=== PATIENT | male | born 1950 | race Caucasian/White ===

== ENCOUNTER 2017-11-02 21:05 | Inpatient (IN) ==
[2017-11-02] MEDS ORDERED: methylPREDNISolone SOD SUC 125 MG/2 ML VIAL IV STA (22:27)
[2017-11-02] MEDS ORDERED: ASPIRIN 325 MG TABLET PO STA (22:27)
[2017-11-02] MEDS ORDERED: cefTRIAXone 1,000 MG in SODIUM CHLORIDE 0.9% 100 ML IV STA (22:27)
[2017-11-02] MEDS ORDERED: MORPHINE 2 MG/1 ML SYRINGE IV STA (22:27)
[2017-11-02] MEDS ORDERED: ONDANSETRON 4 MG/2 ML VIAL IV STA (22:27)
[2017-11-02] MEDS ORDERED: FUROSEMIDE 100 MG/10 ML VIAL IV STA (22:27)
[2017-11-02] MEDS ORDERED: ALBUTEROL 2.5 MG/3 ML NEB RESP TX SCH (22:30)
[2017-11-02 22:39] LABS: Basophils % 0.2 % (0.0-0.8); Hematocrit 43.2 VOL% (42.0-52.0); Immature Granulocytes % 0.9 %; Immature Granulocytes Absolute 0.09 #; Lymphocytes # 0.8 10*3/uL (1.4-4.0); Lymphocytes % 8.1 % (21.2-54.2); Mean Corpuscular HGB Conc 34.7 GM/DL (32-36); Mean Corpuscular Hemoglobin 30 PG (27-34); Mean Corpuscular Volume 85.7 FL (87-102); Mean Platelet Volume 9.3 FL (9.6-12.0); Monocytes # 0.3 10*3/uL (0.11-0.8); Monocytes % 2.9 % (1.7-12.7); Neutrophils # 8.9 10*3/uL (1.4-7.4); Neutrophils % 87.9 % (38.7-73.9); Platelet Count 360 T/CUMM (130-400); Red Blood Count 5.04 MC/CUMM (3.8-5.5); Red Cell Distribution Width 14.1 % (9.3-17.3); White Blood Count 10.1 T/CUMM (4-12)
[2017-11-02] MEDS ORDERED: MORPHINE 2 MG/1 ML SYRINGE ONE (22:39)
[2017-11-02] MEDS ORDERED: methylPREDNISolone SOD SUC 125 MG/2 ML VIAL ONE (22:39)
[2017-11-02] MEDS ORDERED: FUROSEMIDE 20 MG/2 ML VIAL ONE (22:39)
[2017-11-02] MEDS ORDERED: SODIUM CHLORIDE 0.9% 100 ML IV ONE (22:39)
[2017-11-02] MEDS ORDERED: cefTRIAXone 1,000 MG VIAL ONE (22:39)
[2017-11-02 22:48] LABS: INR 0.9; PT Patient Result 9.6 SECS
[2017-11-02] MEDS ORDERED: ONDANSETRON 4 MG/2 ML VIAL ONE (22:57)
[2017-11-02 23:02] LABS: ABG Base Excess -0.2 MMOL/L (-2.5-2.5); ABG HCO3 24.2 MMOL/L (20-26); ABG Oxygen Saturation 94.2 % (95-100); ABG PCO2 29.1 MM HG (35-48); ABG PH 7.485 (7.35-7.45); ABG PO2 73.5 MM HG (80-95); ABG TCO2 18.4 MMOL/L (23-27); Allen Test Positive
[2017-11-02 23:11] LABS: Alanine Aminotransferase 30 U/L (16-61); Alkaline Phosphatase 62 U/L (45-117); Aspartate Amino Transferase 16 U/L (0-37); Blood Urea Nitrogen 30 MG/DL (7-18); Calcium 9.3 MG/DL (8.5-10.1); Glucose 469 MG/DL (74-106); Osmolality,Calculated 286.8 MOS/KG (273-304); Potassium 4.5 MMOL/L (3.5-5.1); Sodium 130 MMOL/L (136-145); Total Protein 8.4 G/DL (6.4-8.3); Troponin I Only < 0.015 NG/ML (0.00-0.045)
[2017-11-02] MEDS ORDERED: INSULIN REGULAR 100 UNIT/ML SUBCUT STA (23:37)
[2017-11-03 00:09] LABS: Lactic Acid 2.8 MMOL/L (0.4-2.0)
[2017-11-03] MEDS ORDERED: INSULIN REGULAR 100 UNIT/ML ONE ×3 (00:15→02:54)
[2017-11-03 00:31] LABS: INR 0.9; PT Patient Result 9.5 SECS; Partial Thromboplastin Time 26.1 SECS (0-40)
[2017-11-03 00:37] LABS: Apearance,Urine CLEAR (Clear); Bilirubin,Urine Negative (Negative); Blood, Urine Negative (Negative); Glucose,Urine (UA) >=500 mg/dL (Negative); Ketones,Urine 5 mg/dL (Negative); Nitrite,Urine Negative (Negative); Protein,Urine Negative; Urine Color Straw (Yellow); Urine Specific Gravity 1.018 (1.001-1.035); Urine Urobilinogen < 2.0 EU/DL (0.2-1.0); WBC,Urine <1 /HPF (0-6)
[2017-11-03 00:44] LABS: Barbiturates Screen,Urine Negative (Negative); Benzodiazepines Screen,Urine Negative (Negative); Cannabinoid Screen,Urine Negative (Negative); Opiate Screen,Urine Positive (Negative); Phencyclidine Screen,Urine Negative (Negative)
[2017-11-03] MEDS ORDERED: PIPERACILLIN/TAZOBACTAM 3,375 MG in SODIUM CHLORIDE 0.9% 100 ML IV SCH ×2 (01:00→10:00)
[2017-11-03] MEDS ORDERED: PIPERACILLIN/TAZOBACTAM 3,375 MG VIAL IV ONE (01:04)
[2017-11-03] MEDS ORDERED: SODIUM CHLORIDE 0.9% 100 ML IV ONE (01:05)
[2017-11-03] MEDS ORDERED: INSULIN REGULAR 100 UNIT/ML IV STA ×2 (01:10→02:50)
[2017-11-03] MEDS ORDERED: SODIUM CHLORIDE 0.9% 1,000 ML IV STA (02:50)
[2017-11-03] MEDS ORDERED: guaiFENesin/DM ER 600-30 MG TABLET PO PRN (02:57)
[2017-11-03] MEDS ORDERED: ACETAMINOPHEN 325 MG TABLET PO PRN (02:57)
[2017-11-03] MEDS ORDERED: DEXTROSE 50% 25 GM/50 ML VIAL IV PRN (02:57)
[2017-11-03] MEDS ORDERED: GLUCAGON 1 MG VIAL IM PRN (02:57)
[2017-11-03] MEDS ORDERED: ONDANSETRON 4 MG/2 ML VIAL IV PRN (02:57)
[2017-11-03] MEDS ORDERED: SODIUM CHLORIDE 0.9% 1,000 ML IV ONE (03:08)
[2017-11-03] MEDS ORDERED: SODIUM CHLORIDE 0.9% 2,000 ML IV STA (03:09)
[2017-11-03 03:17] LABS: Basophils % 0.1 % (0.0-0.8); Hemoglobin 13.6 GM/DL (14.0-18.0); Immature Granulocytes % 0.8 %; Immature Granulocytes Absolute 0.08 #; Lymphocytes # 0.4 10*3/uL (1.4-4.0); Lymphocytes % 3.8 % (21.2-54.2); Mean Corpuscular Hemoglobin 30 PG (27-34); Mean Corpuscular Volume 87.5 FL (87-102); Mean Platelet Volume 8.9 FL (9.6-12.0); Monocytes % 0.3 % (1.7-12.7); Neutrophils # 9.2 10*3/uL (1.4-7.4); Platelet Count 292 T/CUMM (130-400); Red Blood Count 4.57 MC/CUMM (3.8-5.5); Red Cell Distribution Width 13.9 % (9.3-17.3); White Blood Count 9.7 T/CUMM (4-12)
[2017-11-03 03:37] LABS: Band Neutrophils 3 % (0-10); Lymphocytes 6 % (20-55); Platelet Estimate Normal; Segmented Neutrophils 91 % (50-85); Total Cells Counted 100
[2017-11-03 03:43] LABS: Albumin 3.4 G/DL (3.4-5.0); Bilirubin,Total 0.5 MG/DL (0.2-1.0); Calcium 8.6 MG/DL (8.5-10.1); Osmolality,Calculated 290.4 MOS/KG (273-304); Potassium 3.5 MMOL/L (3.5-5.1); Total Protein 7.1 G/DL (6.4-8.3)
[2017-11-03] MEDS ORDERED: AZITHROMYCIN INJ 500 MG in SODIUM CHLORIDE 0.9% 250 ML IV ONE (05:30)
[2017-11-03] MEDS: LEVOTHYROXINE 100 MCG TABLET PO SCH (06:03)
[2017-11-03] MEDS: INSULIN GLARGINE 100 UNIT/ML SUBCUT SCH (09:19)
[2017-11-03] MEDS: INSULIN LISPRO 100 UNIT/ML SUBCUT SCH ×4 (09:19→21:50)
[2017-11-03] MEDS: LISINOPRIL 5 MG TABLET PO SCH (09:19)
[2017-11-03] MEDS: DILTIAZEM CD 120 MG CAPSULE PO SCH (09:19)
[2017-11-03] MEDS: PANTOPRAZOLE 40 MG TABLET PO SCH (09:19)
[2017-11-03] MEDS: GEMFIBROZIL 600 MG TABLET PO SCH ×2 (09:19→16:51)
[2017-11-03] MEDS: FEXOFENADINE 180 MG TABLET PO SCH (09:19)
[2017-11-03] MEDS: ENOXAPARIN 40 MG/0.4 ML SYRINGE SUBCUT SCH (09:19)
[2017-11-03] MEDS: LEVOFLOXACIN INJ 750 MG in PREMIX 1 EACH IV SCH (10:59)
[2017-11-03 11:56] LABS: Apearance,Urine CLEAR (Clear); Bilirubin,Urine Negative (Negative); Blood, Urine Negative (Negative); Glucose,Urine (UA) >=500 mg/dL (Negative); Ketones,Urine Negative (Negative); Nitrite,Urine Negative (Negative); Protein,Urine Negative; RBC,Urine <1 /HPF (0-4); Urine Color Straw (Yellow); Urine Specific Gravity 1.022 (1.001-1.035); Urine Urobilinogen < 2.0 EU/DL (0.2-1.0)
[2017-11-03] MEDS: CEFEPIME 1,000 MG in SYRINGE 1 EACH IV SCH (12:59)
[2017-11-03] MEDS: TAMSULOSIN 0.4 MG CAPSULE PO SCH (17:10)
[2017-11-03] MEDS ORDERED: cefTRIAXone 1,000 MG in SYRINGE 1 EACH IV SCH (20:00)
[2017-11-04] MEDS: CEFEPIME 1,000 MG in SYRINGE 1 EACH IV SCH ×2 (00:08→11:51)
[2017-11-04 05:04] LABS: Basophils % 0.4 % (0.0-0.8); Eosinophils # 0.1 10*3/uL (0.0-0.87); Eosinophils % 0.7 % (0.00-10.9); Hematocrit 41.1 VOL% (42.0-52.0); Hemoglobin 13.7 GM/DL (14.0-18.0); Immature Granulocytes % 1.7 %; Immature Granulocytes Absolute 0.14 #; Lymphocytes # 1.8 10*3/uL (1.4-4.0); Lymphocytes % 22.3 % (21.2-54.2); Mean Corpuscular HGB Conc 33.3 GM/DL (32-36); Mean Corpuscular Hemoglobin 29 PG (27-34); Mean Corpuscular Volume 87.6 FL (87-102); Mean Platelet Volume 9.2 FL (9.6-12.0); Monocytes # 0.5 10*3/uL (0.11-0.8); Monocytes % 6.4 % (1.7-12.7); Neutrophils # 5.6 10*3/uL (1.4-7.4); Neutrophils % 68.5 % (38.7-73.9); Platelet Count 306 T/CUMM (130-400); Red Blood Count 4.69 MC/CUMM (3.8-5.5); Red Cell Distribution Width 14.2 % (9.3-17.3); White Blood Count 8.1 T/CUMM (4-12)
[2017-11-04 05:28] LABS: Calcium 8.7 MG/DL (8.5-10.1); Osmolality,Calculated 286.8 MOS/KG (273-304)
[2017-11-04 05:44] LABS: Risk Ratio 8.24; VLDL CHOLESTEROL 91.8 MG/DL
[2017-11-04] MEDS ORDERED: diphenhydrAMINE CAP 25 MG CAPSULE PO ONE (06:30)
[2017-11-04] MEDS ORDERED: DIAZEPAM 5 MG TABLET PO ONE (06:30)
[2017-11-04] MEDS ORDERED: MAGNESIUM SULF RIDER 2 GM in PREMIX 1 EACH IV PRN (06:30)
[2017-11-04] MEDS ORDERED: POTASSIUM CHLORIDE RIDER 10 MEQ in PREMIX 1 EACH IV PRN (06:30)
[2017-11-04] MEDS: INSULIN LISPRO 100 UNIT/ML SUBCUT SCH ×4 (07:36→21:17)
[2017-11-04] MEDS: GEMFIBROZIL 600 MG TABLET PO SCH (07:36)
[2017-11-04] MEDS: LEVOTHYROXINE 100 MCG TABLET PO SCH (07:37)
[2017-11-04] MEDS ORDERED: HEPARIN/NACL 0.9% 2 UNITS/ML 2,000 ML IV ONE (08:19)
[2017-11-04] MEDS ORDERED: NITROGLYCERIN DRIP 50 MG/250 ML BOTTLE IV ONE (08:42)
[2017-11-04] MEDS ORDERED: MIDAZOLAM 2 MG/2 ML VIAL ONE (08:42)
[2017-11-04] MEDS ORDERED: HYDROmorphone 2 MG/1 ML VIAL ONE (08:42)
[2017-11-04] MEDS ORDERED: LIDOCAINE 1% 20 ML VIAL ONE (08:42)
[2017-11-04] MEDS ORDERED: VERAPAMIL 5 MG/2 ML VIAL ONE (08:43)
[2017-11-04] MEDS ORDERED: ENOXAPARIN 30 MG/0.3 ML SYRINGE ONE (08:57)
[2017-11-04] MEDS ORDERED: BIVALIRUDIN 250 MG VIAL IV ONE (09:16)
[2017-11-04] MEDS ORDERED: TICAGRELOR 90 MG TABLET ONE (09:31)
[2017-11-04] MEDS ORDERED: ASPIRIN 325 MG TABLET ONE (09:37)
[2017-11-04] MEDS ORDERED: SODIUM CHLORIDE 0.9% 1,000 ML IV SCH (10:00)
[2017-11-04] MEDS: PANTOPRAZOLE 40 MG TABLET PO SCH (10:18)
[2017-11-04] MEDS: INSULIN GLARGINE 100 UNIT/ML SUBCUT SCH (10:18)
[2017-11-04] MEDS: ENOXAPARIN 40 MG/0.4 ML SYRINGE SUBCUT SCH (10:18)
[2017-11-04] MEDS: DILTIAZEM CD 120 MG CAPSULE PO SCH (10:18)
[2017-11-04] MEDS: LISINOPRIL 5 MG TABLET PO SCH (10:18)
[2017-11-04] MEDS: FEXOFENADINE 180 MG TABLET PO SCH (10:19)
[2017-11-04] MEDS: LEVOFLOXACIN INJ 750 MG in PREMIX 1 EACH IV SCH (10:52)
[2017-11-04] MEDS: TAMSULOSIN 0.4 MG CAPSULE PO SCH (17:41)
[2017-11-04] MEDS ORDERED: ROSUVASTATIN 20 MG TABLET PO SCH (21:00)
[2017-11-04] MEDS: TICAGRELOR 90 MG TABLET PO SCH (21:17)
[2017-11-05] MEDS: CEFEPIME 1,000 MG in SYRINGE 1 EACH IV SCH ×2 (00:36→12:14)
[2017-11-05 04:41] LABS: Basophils % 0.6 % (0.0-0.8); Eosinophils # 0.1 10*3/uL (0.0-0.87); Eosinophils % 1.1 % (0.00-10.9); Hematocrit 39.8 VOL% (42.0-52.0); Hemoglobin 13.7 GM/DL (14.0-18.0); Immature Granulocytes Absolute 0.13 #; Lymphocytes # 1.3 10*3/uL (1.4-4.0); Mean Corpuscular HGB Conc 34.4 GM/DL (32-36); Mean Corpuscular Hemoglobin 29 PG (27-34); Mean Corpuscular Volume 85.4 FL (87-102); Mean Platelet Volume 8.8 FL (9.6-12.0); Monocytes # 0.5 10*3/uL (0.11-0.8); Monocytes % 7.2 % (1.7-12.7); Neutrophils # 4.4 10*3/uL (1.4-7.4); Neutrophils % 68.1 % (38.7-73.9); Platelet Count 269 T/CUMM (130-400); Red Blood Count 4.66 MC/CUMM (3.8-5.5); White Blood Count 6.4 T/CUMM (4-12)
[2017-11-05 05:20] LABS: Blood Urea Nitrogen 21 MG/DL (7-18); Calcium 8.3 MG/DL (8.5-10.1); Glucose 317 MG/DL (74-106); Osmolality,Calculated 284.1 MOS/KG (273-304); Potassium 3.7 MMOL/L (3.5-5.1); Sodium 135 MMOL/L (136-145); Troponin I Only 0.018 NG/ML (0.00-0.045)
[2017-11-05 05:35] LABS: Calcium 8.4 MG/DL (8.5-10.1); Osmolality,Calculated 283.1 MOS/KG (273-304); Potassium 3.7 MMOL/L (3.5-5.1)
[2017-11-05] MEDS: LEVOTHYROXINE 100 MCG TABLET PO SCH (05:41)
[2017-11-05 08:36] VITALS: BP 147/77
[2017-11-05] MEDS ORDERED: CARVEDILOL 3.125 MG TABLET PO SCH (09:00)
[2017-11-05] MEDS ORDERED: ASPIRIN EC 81 MG TABLET PO SCH (09:00)
[2017-11-05] MEDS: INSULIN LISPRO 100 UNIT/ML SUBCUT SCH ×2 (09:05→12:14)
[2017-11-05] MEDS: TICAGRELOR 90 MG TABLET PO SCH (09:06)
[2017-11-05] MEDS: DILTIAZEM CD 120 MG CAPSULE PO SCH (09:06)
[2017-11-05] MEDS: FEXOFENADINE 180 MG TABLET PO SCH (09:06)
[2017-11-05] MEDS: LISINOPRIL 5 MG TABLET PO SCH (09:06)
[2017-11-05] MEDS: PANTOPRAZOLE 40 MG TABLET PO SCH (09:06)
[2017-11-05] MEDS: INSULIN GLARGINE 100 UNIT/ML SUBCUT SCH (09:06)
[2017-11-05] MEDS: ENOXAPARIN 40 MG/0.4 ML SYRINGE SUBCUT SCH (09:10)
[2017-11-05] MEDS: LEVOFLOXACIN INJ 750 MG in PREMIX 1 EACH IV SCH (10:23)
== END 2017-11-05 12:16 | disposition home or self-care (01) | DRG 853 ==
LOC: N.ED 21:05 → N.EDINP 11-03 03:00 → SUATTDRO 11-03 03:00 → N.TELES 11-03 03:51
PROVIDERS: ADMIT Internal Medicine Infectious Disease; ATTEND Internal Medicine
PROC: CLCCHCL (ICD-10-PCS; 2017-11-04 10:15)

== ENCOUNTER 2018-09-10 12:06 | Observation (INO) ==
[2018-09-10 14:11] LABS: INR 0.9; Partial Thromboplastin Time 26.5 SECS (0-40)
[2018-09-10 14:12] LABS: Albumin 3.8 G/DL (3.4-5.0); Bilirubin,Total 0.5 MG/DL (0.2-1.0); Calcium 9.1 MG/DL (8.5-10.1); Osmolality,Calculated 277.7 MOS/KG (273-304); Potassium 4.3 MMOL/L (3.5-5.1); Total Protein 7.9 G/DL (6.4-8.3)
[2018-09-10 14:33] LABS: Basophils # 0.1 10*3/uL (0.0-0.2); Basophils % 0.9 % (0.0-0.8); Eosinophils # 0.1 10*3/uL (0.0-0.87); Eosinophils % 1.5 % (0.00-10.9); Hematocrit 45.2 VOL% (42.0-52.0); Hemoglobin 13.6 GM/DL (14.0-18.0); Immature Granulocytes % 0.6 %; Immature Granulocytes Absolute 0.05 #; Lymphocytes # 1.6 10*3/uL (1.4-4.0); Lymphocytes % 20.2 % (21.2-54.2); Mean Corpuscular HGB Conc 30.1 GM/DL (32-36); Mean Corpuscular Hemoglobin 24 PG (27-34); Mean Corpuscular Volume 78.1 FL (87-102); Mean Platelet Volume 8.6 FL (9.6-12.0); Monocytes # 0.6 10*3/uL (0.11-0.8); Monocytes % 7.3 % (1.7-12.7); Neutrophils # 5.7 10*3/uL (1.4-7.4); Neutrophils % 69.5 % (38.7-73.9); Platelet Count 352 T/CUMM (130-400); Red Blood Count 5.79 MC/CUMM (3.8-5.5); Red Cell Distribution Width 23.6 % (9.3-17.3); White Blood Count 8.1 T/CUMM (4-12)
[2018-09-10] MEDS ORDERED: SODIUM CHLORIDE 0.9% 1,000 ML IV ONE (15:29)
[2018-09-10 16:00] LABS: Platelet Estimate Adequate
[2018-09-10] MEDS ORDERED: LORazepam 2 MG/1 ML VIAL IV STA (16:06)
[2018-09-10] MEDS ORDERED: GLUCAGON 1 MG VIAL IM PRN (16:20)
[2018-09-10] MEDS ORDERED: MORPHINE 4 MG/1 ML VIAL IV PRN (16:20)
[2018-09-10] MEDS ORDERED: DEXTROSE 50% 25 GM/50 ML VIAL IV PRN (16:20)
[2018-09-10] MEDS ORDERED: ACETAMINOPHEN 325 MG TABLET PO PRN (16:20)
[2018-09-10] MEDS ORDERED: ONDANSETRON 4 MG/2 ML VIAL IV PRN (16:20)
[2018-09-10] MEDS ORDERED: traMADol 50 MG TABLET PO PRN (16:23)
[2018-09-10] MEDS ORDERED: ALBUTEROL 2.5 MG/3 ML NEB RESP TX PRN (16:23)
[2018-09-10 16:52] LABS: Thyroid Stimulating Hormone 2.54 uIU/ml (0.358-3.74)
[2018-09-10] MEDS: SODIUM CHLORIDE 0.9% 1,000 ML IV SCH (17:10)
[2018-09-10] MEDS ORDERED: LORazepam 2 MG/1 ML VIAL IV PRN (18:19)
[2018-09-10] MEDS: INSULIN REGULAR 100 UNIT/ML SUBCUT SCH ×2 (19:06→21:31)
[2018-09-10] MEDS: methylPREDNISolone SOD SUC 40 MG/1 ML VIAL IV SCH (19:16)
[2018-09-10] MEDS: PANTOPRAZOLE 40 MG TABLET PO SCH (19:16)
[2018-09-10] MEDS: ALBUTEROL/IPRATROPIUM 3 ML NEB RESP TX SCH (20:27)
[2018-09-10] MEDS: TICAGRELOR 90 MG TABLET PO SCH (21:45)
[2018-09-10] MEDS: INSULIN GLARGINE 100 UNIT/ML SUBCUT SCH (21:46)
[2018-09-11] MEDS: ALBUTEROL/IPRATROPIUM 3 ML NEB RESP TX SCH ×7 (00:38→23:17)
[2018-09-11] MEDS: methylPREDNISolone SOD SUC 40 MG/1 ML VIAL IV SCH ×4 (00:50→18:40)
[2018-09-11] MEDS: SODIUM CHLORIDE 0.9% 1,000 ML IV SCH ×3 (00:56→17:32)
[2018-09-11 01:16] LABS: Apearance,Urine CLEAR (Clear); Bilirubin,Urine Negative (Negative); Blood, Urine Negative (Negative); Glucose,Urine (UA) >=500 mg/dL (Negative); Ketones,Urine 5 mg/dL (Negative); Nitrite,Urine Negative (Negative); Protein,Urine Negative; Urine Color Straw (Yellow); Urine Specific Gravity 1.021 (1.001-1.035); Urine Urobilinogen < 2.0 EU/DL (0.2-1.0)
[2018-09-11 04:31] LABS: ABG HCO3 21.9 MMOL/L (20-26); ABG Oxygen Saturation 99.3 % (95-100); ABG PCO2 37.6 MM HG (35-48); ABG PH 7.372 (7.35-7.45); ABG TCO2 19.3 MMOL/L (23-27); Allen Test Positive
[2018-09-11 05:41] LABS: Calcium 8.2 MG/DL (8.5-10.1); Osmolality,Calculated 283.7 MOS/KG (273-304); Potassium 3.8 MMOL/L (3.5-5.1)
[2018-09-11] MEDS: LEVOTHYROXINE 100 MCG TABLET PO SCH (05:59)
[2018-09-11 06:24] LABS: Hematocrit 39.8 VOL% (42.0-52.0); Immature Granulocytes % 0.4 %; Immature Granulocytes Absolute 0.03 #; Lymphocytes # 0.4 10*3/uL (1.4-4.0); Lymphocytes % 5.1 % (21.2-54.2); Mean Corpuscular HGB Conc 29.9 GM/DL (32-36); Mean Corpuscular Hemoglobin 24 PG (27-34); Mean Corpuscular Volume 79.3 FL (87-102); Mean Platelet Volume 8.6 FL (9.6-12.0); Monocytes % 0.4 % (1.7-12.7); Neutrophils # 7.2 10*3/uL (1.4-7.4); Neutrophils % 94.1 % (38.7-73.9); Platelet Count 299 T/CUMM (130-400); Red Blood Count 5.02 MC/CUMM (3.8-5.5); Red Cell Distribution Width 23.2 % (9.3-17.3); White Blood Count 7.6 T/CUMM (4-12)
[2018-09-11 06:26] LABS: Hemoglobin 11.9 GM/DL (14.0-18.0)
[2018-09-11 06:36] LABS: Anisocytosis 1+; Band Neutrophils 5 % (0-10); Lymphocytes 4 % (20-55); Microcytosis 1+; Platelet Estimate Normal; Segmented Neutrophils 90 % (50-85); Total Cells Counted 100
[2018-09-11] MEDS ORDERED: NON-FORMULARY MEDICATION (Fluticasone/Vilanterol [Breo Ellipta 100-25 Mcg Inh] 1 PUFF) INH SCH (09:00)
[2018-09-11] MEDS: TICAGRELOR 90 MG TABLET PO SCH ×2 (09:24→21:18)
[2018-09-11] MEDS: DILTIAZEM CD 120 MG CAPSULE PO SCH (09:24)
[2018-09-11] MEDS: ASPIRIN EC 81 MG TABLET PO SCH (09:24)
[2018-09-11] MEDS: TAMSULOSIN 0.4 MG CAPSULE PO SCH (09:24)
[2018-09-11] MEDS: PANTOPRAZOLE 40 MG TABLET PO SCH (09:25)
[2018-09-11] MEDS: INSULIN REGULAR 100 UNIT/ML SUBCUT SCH ×4 (09:25→23:00)
[2018-09-11] MEDS: CYCLOBENZAPRINE 10 MG TABLET PO SCH ×2 (15:01→21:18)
[2018-09-11] MEDS: INSULIN GLARGINE 100 UNIT/ML SUBCUT SCH (23:01)
[2018-09-12] MEDS: methylPREDNISolone SOD SUC 40 MG/1 ML VIAL IV SCH ×3 (01:18→12:38)
[2018-09-12] MEDS: SODIUM CHLORIDE 0.9% 1,000 ML IV SCH ×2 (01:24→09:32)
[2018-09-12] MEDS: ALBUTEROL/IPRATROPIUM 3 ML NEB RESP TX SCH ×3 (03:24→10:56)
[2018-09-12 04:52] LABS: ABG Base Excess -1.4 MMOL/L (-2.5-2.5); ABG HCO3 23.2 MMOL/L (20-26); ABG Oxygen Saturation 98.4 % (95-100); ABG PCO2 38.5 MM HG (35-48); ABG PH 7.389 (7.35-7.45); ABG TCO2 20.6 MMOL/L (23-27); Allen Test Positive
[2018-09-12] MEDS: LEVOTHYROXINE 100 MCG TABLET PO SCH (06:23)
[2018-09-12] MEDS ORDERED: FEXOFENADINE 180 MG TABLET PO SCH (09:00)
[2018-09-12] MEDS ORDERED: Empagliflozin [Jardiance] 25 MG PO SCH (09:00)
[2018-09-12] MEDS: ASPIRIN EC 81 MG TABLET PO SCH (09:21)
[2018-09-12] MEDS: PANTOPRAZOLE 40 MG TABLET PO SCH (09:21)
[2018-09-12] MEDS: TAMSULOSIN 0.4 MG CAPSULE PO SCH (09:21)
[2018-09-12] MEDS: CYCLOBENZAPRINE 10 MG TABLET PO SCH ×2 (09:21→14:02)
[2018-09-12] MEDS: DILTIAZEM CD 120 MG CAPSULE PO SCH (09:21)
[2018-09-12] MEDS: TICAGRELOR 90 MG TABLET PO SCH (09:21)
[2018-09-12] MEDS: INSULIN REGULAR 100 UNIT/ML SUBCUT SCH ×2 (09:29→12:37)
[2018-09-12 15:47] VITALS: BP 114/62
== END 2018-09-12 15:50 | disposition home or self-care (01) ==
LOC: N.ED 12:06 → N.EDINP 15:27 → SUATTDRO 15:27 → INTOOBSV 15:27 → N.CC 17:45 → N.5E 09-11 11:09
PROVIDERS: ADMIT Internal Medicine; ATTEND Internal Medicine Cardiovascular Disease

== ENCOUNTER 2019-06-29 15:27 | Observation (INO) ==
[2019-06-29] MEDS ORDERED: ALBUTEROL/IPRATROPIUM 3 ML NEB RESP TX STA (16:55)
[2019-06-29 17:17] LABS: Basophils # 0.1 10*3/uL (0.0-0.2); Basophils % 0.8 % (0.0-0.8); Eosinophils # 0.2 10*3/uL (0.0-0.87); Eosinophils % 2.1 % (0.00-10.9); Hematocrit 40.2 VOL% (42.0-52.0); Hemoglobin 12.3 GM/DL (14.0-18.0); Immature Granulocytes % 0.7 %; Immature Granulocytes Absolute 0.05 #; Lymphocytes # 1.4 10*3/uL (1.4-4.0); Lymphocytes % 19.9 % (21.2-54.2); Mean Corpuscular HGB Conc 30.6 GM/DL (32-36); Mean Corpuscular Volume 78.8 FL (87-102); Mean Platelet Volume 8.5 FL (9.6-12.0); Monocytes % 6.8 % (1.7-12.7); Neutrophils % 69.7 % (38.7-73.9); Platelet Count 348 T/CUMM (130-400); Red Cell Distribution Width 16.5 % (9.3-17.3); White Blood Count 7.3 T/CUMM (4-12)
[2019-06-29 17:37] LABS: Apearance,Urine CLEAR (Clear); Bilirubin,Urine Negative (Negative); Blood, Urine Negative (Negative); Glucose,Urine (UA) >=500 mg/dL (Negative); Ketones,Urine 5 mg/dL (Negative); Mucus,Urine Occasional /LPF (Occasional); Nitrite,Urine Negative (Negative); Protein,Urine Negative; RBC,Urine <1 /HPF (0-4); Squamous Epithelial Cell,Urine Occasional /HPF (0-10); Urine Color Straw (Yellow); Urine Specific Gravity 1.026 (1.001-1.035); Urine Urobilinogen < 2.0 EU/DL (0.2-1.0); WBC,Urine <1 /HPF (0-6)
[2019-06-29 17:40] LABS: Barbiturates Screen,Urine Negative (Negative); Benzodiazepines Screen,Urine Negative (Negative); Cannabinoid Screen,Urine Negative (Negative); Opiate Screen,Urine Negative (Negative); Phencyclidine Screen,Urine Negative (Negative)
[2019-06-29 17:47] LABS: Troponin I < 0.015 NG/ML (0.00-0.045)
[2019-06-29 18:11] LABS: Alanine Aminotransferase 31 U/L (16-61); Albumin 3.7 G/DL (3.4-5.0); Alkaline Phosphatase 75 U/L (45-117); Aspartate Amino Transferase 15 U/L (0-37); Bilirubin,Total < 0.39 MG/DL (0.2-1.0); Blood Urea Nitrogen 22 MG/DL (7-18); Calcium 8.8 MG/DL (8.5-10.1); Estimated Glom Filtration Rate 60 ML/MIN; Glucose 189 MG/DL (74-106); Osmolality,Calculated 282.7 MOS/KG (273-304); Total Protein 7.6 G/DL (6.4-8.3)
[2019-06-29] MEDS ORDERED: hydrALAZINE 20 MG/1 ML VIAL IV PRN (19:30)
[2019-06-29] MEDS ORDERED: INSULIN GLARGINE 100 UNIT/ML SUBCUT STA (19:30)
[2019-06-29] MEDS ORDERED: ONDANSETRON 4 MG/2 ML VIAL IV PRN (19:30)
[2019-06-29] MEDS ORDERED: INSULIN GLARGINE 100 UNIT/ML SUBCUT ONE (21:00)
[2019-06-29] MEDS: FAMOTIDINE 20 MG/2 ML VIAL IV SCH (22:04)
[2019-06-30 06:13] LABS: Troponin I < 0.015 NG/ML (0.00-0.045)
[2019-06-30] MEDS ORDERED: POTASSIUM CHLORIDE RIDER 10 MEQ in PREMIX 1 EACH IV PRN (09:59)
[2019-06-30] MEDS ORDERED: diphenhydrAMINE CAP 25 MG CAPSULE PO ONE (09:59)
[2019-06-30] MEDS ORDERED: MAGNESIUM SULF RIDER 2 GM in PREMIX 1 EACH IV PRN (09:59)
[2019-06-30] MEDS ORDERED: DIAZEPAM 5 MG TABLET PO ONE (09:59)
[2019-06-30] MEDS: SODIUM CHLORIDE 0.9% 1,000 ML IV SCH ×6 (10:00→21:40)
[2019-06-30] MEDS ORDERED: ALBUTEROL 2.5 MG/3 ML NEB RESP TX PRN ×2 (10:26→11:00)
[2019-06-30] MEDS ORDERED: CYCLOBENZAPRINE 10 MG TABLET PO PRN (10:26)
[2019-06-30] MEDS ORDERED: NITROGLYCERIN SL 0.4 MG TABLET SL PRN (10:26)
[2019-06-30] MEDS ORDERED: traMADol 50 MG TABLET PO PRN (10:26)
[2019-06-30] MEDS: FAMOTIDINE 20 MG/2 ML VIAL IV SCH ×2 (10:58→21:43)
[2019-06-30] MEDS ORDERED: HEPARIN/NACL 0.9% 2 UNITS/ML 1,000 ML IV ONE (11:09)
[2019-06-30] MEDS ORDERED: LIDOCAINE 1% 20 ML VIAL ONE (11:09)
[2019-06-30] MEDS ORDERED: MIDAZOLAM 2 MG/2 ML VIAL ONE ×2 (11:19→11:56)
[2019-06-30] MEDS ORDERED: fentaNYL 100 MCG/2 ML VIAL ONE (11:19)
[2019-06-30] MEDS ORDERED: BIVALIRUDIN 250 MG VIAL IV ONE (11:50)
[2019-06-30] MEDS ORDERED: TICAGRELOR 90 MG TABLET ONE (12:11)
[2019-06-30] MEDS ORDERED: ASPIRIN 325 MG TABLET ONE (12:11)
[2019-06-30] MEDS ORDERED: ACETAMINOPHEN/CODEINE 300-30 MG TABLET PO PRN (12:33)
[2019-06-30] MEDS ORDERED: MORPHINE 4 MG/1 ML VIAL IV PRN (12:33)
[2019-06-30] MEDS ORDERED: ACETAMINOPHEN 325 MG TABLET PO PRN (12:33)
[2019-06-30] MEDS ORDERED: INSULIN GLARGINE 100 UNIT/ML SUBCUT SCH (21:00)
[2019-06-30] MEDS: TICAGRELOR 90 MG TABLET PO SCH (21:42)
[2019-07-01] MEDS: SODIUM CHLORIDE 0.9% 1,000 ML IV SCH (02:30)
[2019-07-01 06:06] LABS: Basophils # 0.1 10*3/uL (0.0-0.2); Basophils % 0.8 % (0.0-0.8); Eosinophils # 0.2 10*3/uL (0.0-0.87); Eosinophils % 2.1 % (0.00-10.9); Hematocrit 39.6 VOL% (42.0-52.0); Hemoglobin 11.9 GM/DL (14.0-18.0); Immature Granulocytes % 0.6 %; Immature Granulocytes Absolute 0.04 #; Lymphocytes # 1.5 10*3/uL (1.4-4.0); Lymphocytes % 20.9 % (21.2-54.2); Mean Corpuscular HGB Conc 30.1 GM/DL (32-36); Mean Corpuscular Volume 79.2 FL (87-102); Mean Platelet Volume 8.7 FL (9.6-12.0); Monocytes % 9.2 % (1.7-12.7); Neutrophils % 66.4 % (38.7-73.9); Platelet Count 315 T/CUMM (130-400); Red Cell Distribution Width 16.4 % (9.3-17.3); White Blood Count 7.1 T/CUMM (4-12)
[2019-07-01 06:43] LABS: Calcium 8.4 MG/DL (8.5-10.1); Osmolality,Calculated 278.7 MOS/KG (273-304)
[2019-07-01] MEDS ORDERED: LEVOTHYROXINE 100 MCG TABLET PO SCH (09:00)
[2019-07-01] MEDS ORDERED: NON-FORMULARY MEDICATION (Empagliflozin [Jardiance] 25 MG) PO SCH (09:00)
[2019-07-01] MEDS ORDERED: ASPIRIN EC 81 MG TABLET PO SCH (09:00)
[2019-07-01] MEDS ORDERED: PANTOPRAZOLE 40 MG TABLET PO SCH (09:00)
[2019-07-01] MEDS ORDERED: DILTIAZEM CD 120 MG CAPSULE PO SCH (09:00)
[2019-07-01] MEDS ORDERED: NON-FORMULARY MEDICATION (Fluticasone Furoate-Vilanterol [Breo Ellipta] 1 PUFF) INH SCH (09:00)
[2019-07-01] MEDS ORDERED: TAMSULOSIN 0.4 MG CAPSULE PO SCH (09:00)
[2019-07-01] MEDS: TICAGRELOR 90 MG TABLET PO SCH (09:43)
[2019-07-01] MEDS: FAMOTIDINE 20 MG/2 ML VIAL IV SCH (09:43)
[2019-07-01 11:57] VITALS: BP 140/72
[2019-07-01 13:11] LABS: Apearance,Urine CLEAR (Clear); Bilirubin,Urine Negative (Negative); Blood, Urine Negative (Negative); Glucose,Urine (UA) >=500 mg/dL (Negative); Ketones,Urine Negative (Negative); Nitrite,Urine Negative (Negative); Protein,Urine Negative; RBC,Urine 1 /HPF (0-4); Urine Color Straw (Yellow); Urine Specific Gravity 1.013 (1.001-1.035); Urine Urobilinogen < 2.0 EU/DL (0.2-1.0); WBC,Urine <1 /HPF (0-6)
[2019-07-01] MEDS ORDERED: INFLUENZA VIRUS VACCINE 0.5 ML SYRINGE IM ONE (13:34)
[2019-07-01] MEDS ORDERED: PNEUMOCOCCAL VACCINE (13 VALENT) 0.5 ML SYRINGE IM ONE (13:34)
== END 2019-07-01 14:01 | disposition home or self-care (01) ==
LOC: N.ED 15:27 → N.EDINP 15:27 → N.TELEN 20:14
PROVIDERS: ADMIT Internal Medicine Cardiovascular Disease; ATTEND Internal Medicine Cardiovascular Disease
PROC: CLCCHCL (ICD-10-PCS; 2019-06-30 11:15)

== ENCOUNTER 2019-10-10 12:42 | Observation (INO) ==
[2019-10-10 14:13] LABS: Albumin 4.2 G/DL (3.4-5.0); Bilirubin,Total 0.9 MG/DL (0.2-1.0); Calcium 9.1 MG/DL (8.5-10.1); Total Protein 7.5 G/DL (6.4-8.3)
[2019-10-10 14:16] LABS: Basophils % 0.6 % (0.0-0.8); Eosinophils # 0.1 10*3/uL (0.0-0.87); Eosinophils % 1.9 % (0.00-10.9); Hematocrit 33.2 VOL% (42.0-52.0); Immature Granulocytes % 0.6 %; Immature Granulocytes Absolute 0.04 #; Lymphocytes # 1.1 10*3/uL (1.4-4.0); Lymphocytes % 15.1 % (21.2-54.2); Mean Corpuscular HGB Conc 28.9 GM/DL (32-36); Mean Corpuscular Volume 69.5 FL (87-102); Mean Platelet Volume 8.3 FL (9.6-12.0); Monocytes % 7.9 % (1.7-12.7); Neutrophils % 73.9 % (38.7-73.9); Platelet Count 285 T/CUMM (130-400); Red Blood Count 4.78 MC/CUMM (3.8-5.5); Red Cell Distribution Width 18.5 % (9.3-17.3)
[2019-10-10 14:19] LABS: Hemoglobin 9.6 GM/DL (14.0-18.0)
[2019-10-10 14:30] LABS: Anisocytosis 1+; Hypochromasia 1+; Ovalocytes 1+
[2019-10-10 15:38] LABS: Apearance,Urine CLEAR (Clear); Bilirubin,Urine Negative (Negative); Blood, Urine Negative (Negative); Glucose,Urine (UA) >=500 mg/dL (Negative); Ketones,Urine Negative (Negative); Mucus,Urine Occasional /LPF (Occasional); Nitrite,Urine Negative (Negative); Protein,Urine Negative; Urine Color Straw (Yellow); Urine Specific Gravity 1.009 (1.001-1.035); Urine Urobilinogen < 2.0 EU/DL (0.2-1.0)
[2019-10-10] MEDS ORDERED: ONDANSETRON 4 MG/2 ML VIAL IV ONE (15:56)
[2019-10-10] MEDS ORDERED: LACTATED RINGERS 1,000 ML IV SCH (16:00)
[2019-10-10] MEDS ORDERED: ACETAMINOPHEN 325 MG TABLET PO PRN (16:12)
[2019-10-10] MEDS ORDERED: DEXTROSE 50% 25 GM/50 ML VIAL IV PRN (16:12)
[2019-10-10] MEDS ORDERED: GLUCAGON 1 MG VIAL IM PRN (16:12)
[2019-10-10] MEDS ORDERED: CYCLOBENZAPRINE 10 MG TABLET PO PRN (16:15)
[2019-10-10] MEDS ORDERED: ALBUTEROL 2.5 MG/3 ML NEB RESP TX PRN (16:15)
[2019-10-10] MEDS ORDERED: NITROGLYCERIN SL 0.4 MG TABLET SL PRN (16:15)
[2019-10-10] MEDS ORDERED: traMADol 50 MG TABLET PO PRN (16:15)
[2019-10-10] MEDS: INSULIN REGULAR 100 UNIT/ML SUBCUT SCH (22:02)
[2019-10-10] MEDS: PANTOPRAZOLE 40 MG TABLET PO SCH (22:03)
[2019-10-10] MEDS: TICAGRELOR 90 MG TABLET PO SCH (22:03)
[2019-10-10] MEDS: metFORMIN 500 MG TABLET PO SCH (22:03)
[2019-10-10] MEDS: TAMSULOSIN 0.4 MG CAPSULE PO SCH (22:03)
[2019-10-10] MEDS: DOCUSATE SODIUM 100 MG CAPSULE PO SCH (22:03)
[2019-10-10] MEDS: ASPIRIN EC 81 MG TABLET PO SCH (22:03)
[2019-10-10] MEDS: INSULIN GLARGINE 100 UNIT/ML SUBCUT SCH (22:04)
[2019-10-10 22:49] LABS: Barbiturates Screen,Urine Negative (Negative); Benzodiazepines Screen,Urine Negative (Negative); Cannabinoid Screen,Urine Negative (Negative); Opiate Screen,Urine Negative (Negative); Phencyclidine Screen,Urine Negative (Negative)
[2019-10-11 04:34] LABS: Basophils # 0.1 10*3/uL (0.0-0.2); Basophils % 0.9 % (0.0-0.8); Eosinophils # 0.2 10*3/uL (0.0-0.87); Eosinophils % 3.8 % (0.00-10.9); Hematocrit 32.4 VOL% (42.0-52.0); Hemoglobin 9.4 GM/DL (14.0-18.0); Immature Granulocytes % 0.4 %; Immature Granulocytes Absolute 0.02 #; Lymphocytes # 1.2 10*3/uL (1.4-4.0); Lymphocytes % 23.3 % (21.2-54.2); Mean Corpuscular Volume 69.4 FL (87-102); Mean Platelet Volume 8.6 FL (9.6-12.0); Monocytes % 8.6 % (1.7-12.7); Platelet Count 288 T/CUMM (130-400); Red Blood Count 4.67 MC/CUMM (3.8-5.5); Red Cell Distribution Width 18.4 % (9.3-17.3); White Blood Count 5.3 T/CUMM (4-12)
[2019-10-11 04:49] LABS: Anisocytosis 1+; Hypochromasia 1+
[2019-10-11 04:50] LABS: Microcytosis 2+; Ovalocytes Slight; Platelet Estimate Normal
[2019-10-11 05:14] LABS: Sedimentation Rate-Westergren 16 MM/HR (0-20)
[2019-10-11 05:45] LABS: % Iron Saturation 3.7 % (18-50); Ferritin 4.6 ng/ml (26-388)
[2019-10-11 05:49] LABS: Albumin 3.7 G/DL (3.4-5.0); Bilirubin,Total 0.5 MG/DL (0.2-1.0); Calcium 9.5 MG/DL (8.5-10.1); Osmolality,Calculated 284.3 MOS/KG (273-304); Risk Ratio 3.48; Thyroid Stimulating Hormone 0.824 uIU/ml (0.358-3.74); Total Protein 7.6 G/DL (6.4-8.3); VLDL CHOLESTEROL 78.4 MG/DL
[2019-10-11] MEDS: LEVOTHYROXINE 100 MCG TABLET PO SCH (06:12)
[2019-10-11 07:29] LABS: Folate 13.2 NG/ML (5.4-24.0); Vitamin B12 330 PG/ML (211-911)
[2019-10-11] MEDS: NON-FORMULARY MEDICATION (Empagliflozin [Jardiance] 25 MG) PO SCH (10:00)
[2019-10-11] MEDS: NON-FORMULARY MEDICATION (Tiotropium-Olodaterol [Stiolto Respimat] 2 PUFF) INH SCH (10:00)
[2019-10-11] MEDS: NON-FORMULARY MEDICATION (Fluticasone Furoate-Vilanterol [Breo Ellipta] 1 PUFF) INH SCH (10:00)
[2019-10-11] MEDS: INSULIN REGULAR 100 UNIT/ML SUBCUT SCH ×4 (10:19→21:47)
[2019-10-11] MEDS: TICAGRELOR 90 MG TABLET PO SCH ×2 (10:24→21:43)
[2019-10-11] MEDS: DILTIAZEM CD 120 MG CAPSULE PO SCH (10:24)
[2019-10-11] MEDS: PANTOPRAZOLE 40 MG TABLET PO SCH ×2 (10:24→21:43)
[2019-10-11] MEDS: DOCUSATE SODIUM 100 MG CAPSULE PO SCH ×2 (10:24→21:43)
[2019-10-11] MEDS ORDERED: DEXTROSE 50% 25 GM/50 ML VIAL IV PRN (10:58)
[2019-10-11] MEDS ORDERED: GLUCAGON 1 MG VIAL IM PRN (10:58)
[2019-10-11] MEDS ORDERED: LORazepam 2 MG/1 ML VIAL IV ONE (12:20)
[2019-10-11] MEDS ORDERED: diphenhydrAMINE 50 MG/1 ML VIAL IV ONE (12:21)
[2019-10-11] MEDS ORDERED: ROSUVASTATIN 20 MG TABLET PO SCH (21:00)
[2019-10-11] MEDS: ASPIRIN EC 81 MG TABLET PO SCH (21:43)
[2019-10-11] MEDS: OMEGA 3 ACID ETHYL ESTERS 1 GM CAPSULE PO SCH (21:43)
[2019-10-11] MEDS: FERROUS SULFATE 325 MG TABLET PO SCH (21:44)
[2019-10-11] MEDS: INSULIN GLARGINE 100 UNIT/ML SUBCUT SCH (21:44)
[2019-10-11] MEDS: TAMSULOSIN 0.4 MG CAPSULE PO SCH (21:44)
[2019-10-12 04:25] LABS: Albumin 3.4 G/DL (3.4-5.0); Bilirubin,Total 1.2 MG/DL (0.2-1.0); Calcium 8.2 MG/DL (8.5-10.1); Osmolality,Calculated 278.8 MOS/KG (273-304); Total Protein 6.9 G/DL (6.4-8.3)
[2019-10-12 04:30] LABS: Basophils # 0.1 10*3/uL (0.0-0.2); Basophils % 0.9 % (0.0-0.8); Eosinophils # 0.2 10*3/uL (0.0-0.87); Eosinophils % 4.1 % (0.00-10.9); Hematocrit 32.7 VOL% (42.0-52.0); Hemoglobin 9.4 GM/DL (14.0-18.0); Immature Granulocytes % 0.4 %; Immature Granulocytes Absolute 0.02 #; Lymphocytes # 1.4 10*3/uL (1.4-4.0); Lymphocytes % 24.1 % (21.2-54.2); Mean Corpuscular HGB Conc 28.7 GM/DL (32-36); Mean Platelet Volume 8.5 FL (9.6-12.0); Monocytes % 8.5 % (1.7-12.7); Platelet Count 266 T/CUMM (130-400); Red Blood Count 4.67 MC/CUMM (3.8-5.5); Red Cell Distribution Width 18.5 % (9.3-17.3); White Blood Count 5.6 T/CUMM (4-12)
[2019-10-12 04:33] LABS: Hypochromasia 1+; Ovalocytes Slight; Platelet Estimate Adequate
[2019-10-12 04:34] LABS: Microcytosis 1+
[2019-10-12] MEDS: LEVOTHYROXINE 100 MCG TABLET PO SCH (06:30)
[2019-10-12] MEDS: INSULIN REGULAR 100 UNIT/ML SUBCUT SCH ×3 (07:29→11:52)
[2019-10-12] MEDS: metFORMIN 500 MG TABLET PO SCH (07:59)
[2019-10-12] MEDS: NON-FORMULARY MEDICATION (Tiotropium-Olodaterol [Stiolto Respimat] 2 PUFF) INH SCH (08:57)
[2019-10-12] MEDS ORDERED: COENZYME Q10 100 MG CAPSULE PO SCH (09:00)
[2019-10-12] MEDS ORDERED: FENOFIBRATE 160 MG TABLET PO SCH (09:00)
[2019-10-12] MEDS: DILTIAZEM CD 120 MG CAPSULE PO SCH (09:53)
[2019-10-12] MEDS: NON-FORMULARY MEDICATION (Empagliflozin [Jardiance] 25 MG) PO SCH (09:53)
[2019-10-12] MEDS: FERROUS SULFATE 325 MG TABLET PO SCH (09:54)
[2019-10-12] MEDS: TICAGRELOR 90 MG TABLET PO SCH (09:54)
[2019-10-12] MEDS: PANTOPRAZOLE 40 MG TABLET PO SCH (09:54)
[2019-10-12 10:21] LABS: Hemoglobin A1 (Alkaline) 97.9 % (96.5-98.5); Hemoglobin A2 (Alkaline) 2.1 % (1.5-3.5)
[2019-10-12 11:59] VITALS: BP 132/72
[2019-10-12] MEDS: NON-FORMULARY MEDICATION (Fluticasone Furoate-Vilanterol [Breo Ellipta] 1 PUFF) INH SCH (13:46)
[2019-10-12] MEDS: DOCUSATE SODIUM 100 MG CAPSULE PO SCH (13:50)
[2019-10-12] MEDS: OMEGA 3 ACID ETHYL ESTERS 1 GM CAPSULE PO SCH (13:50)
== END 2019-10-12 15:26 | disposition home or self-care (01) ==
LOC: N.EDINP 12:42 → N.ED 12:42 → N.2W 17:20
PROVIDERS: ADMIT Hospitalist; ATTEND Hospitalist

== ENCOUNTER 2022-10-13 21:27 | Observation (INO) ==
[2022-10-13] MEDS ORDERED: ASPIRIN 325 MG TABLET PO STA (22:01)
[2022-10-13 22:31] LABS: Basophils # 0.1 10*3/uL (0.0-0.2); Basophils % 1.4 % (0.0-0.8); Eosinophils # 0.3 10*3/uL (0.0-0.87); Eosinophils % 5.2 % (0.00-10.9); Hematocrit 35.9 VOL% (42.0-52.0); Hemoglobin 11.4 GM/DL (14.0-18.0); Immature Granulocytes % 0.6 %; Immature Granulocytes Absolute 0.03 #; Lymphocytes # 1.4 10*3/uL (1.4-4.0); Lymphocytes % 26.8 % (21.2-54.2); Mean Corpuscular HGB Conc 31.8 GM/DL (32-36); Mean Corpuscular Volume 79.8 FL (87-102); Mean Platelet Volume 8.9 FL (9.6-12.0); Monocytes # 0.5 10*3/uL (0.11-0.8); Monocytes % 9.5 % (1.7-12.7); Neutrophils % 56.5 % (38.7-73.9); Platelet Count 309 T/CUMM (130-400); Red Cell Distribution Width 15.8 % (9.3-17.3); White Blood Count 5.2 T/CUMM (4-12)
[2022-10-13 22:43] LABS: Alanine Aminotransferase 34 U/L (16-61); Albumin 3.9 G/DL (3.4-5.0); Alkaline Phosphatase 60 U/L (45-117); Aspartate Amino Transferase 26 U/L (0-37); Bilirubin,Total < 0.39 MG/DL (0.20-1.00); Blood Urea Nitrogen 29 MG/DL (7-18); Calcium 8.6 MG/DL (8.5-10.1); Carbon Dioxide 26 MMOL/L (21-32); Chloride 101 MMOL/L (98-107); Glucose 288 MG/DL (74-106); Osmolality,Calculated 286.1 MOS/KG (273-304); Potassium 3.7 MMOL/L (3.5-5.1); Sodium 135 MMOL/L (136-145); Total Protein 7.6 G/DL (6.4-8.2)
[2022-10-13] MEDS ORDERED: MORPHINE 2 MG/1 ML SYRINGE IV PRN (23:07)
[2022-10-13] MEDS ORDERED: hydrALAZINE 20 MG/1 ML VIAL IV PRN (23:07)
[2022-10-13] MEDS ORDERED: MAGNESIUM SULF RIDER 2 GM/50 ML PREMIX IV PRN (23:07)
[2022-10-13] MEDS ORDERED: POTASSIUM CHLORIDE 20 MEQ TABLET PO PRN (23:07)
[2022-10-13] MEDS ORDERED: SIMETHICONE CHEW 125 MG TABLET PO PRN (23:07)
[2022-10-13] MEDS ORDERED: GLUCAGON 1 MG VIAL IM PRN (23:07)
[2022-10-13] MEDS ORDERED: ACETAMINOPHEN 325 MG TABLET PO PRN (23:07)
[2022-10-13] MEDS ORDERED: ONDANSETRON 4 MG/2 ML VIAL IV PRN (23:07)
[2022-10-13] MEDS ORDERED: NITROGLYCERIN SL 0.4 MG TABLET SL PRN (23:07)
[2022-10-13] MEDS ORDERED: DEXTROSE 10% 250 ML BAG IV PRN (23:07)
[2022-10-14] MEDS: SODIUM CHLORIDE 0.9% 1,000 ML IV SCH ×2 (03:52→13:46)
[2022-10-14 05:09] LABS: Basophils # 0.1 10*3/uL (0.0-0.2); Basophils % 1.2 % (0.0-0.8); Eosinophils # 0.3 10*3/uL (0.0-0.87); Eosinophils % 6.6 % (0.00-10.9); Hematocrit 35.2 VOL% (42.0-52.0); Hemoglobin 10.7 GM/DL (14.0-18.0); Immature Granulocytes % 0.6 %; Immature Granulocytes Absolute 0.03 #; Lymphocytes # 1.4 10*3/uL (1.4-4.0); Lymphocytes % 28.8 % (21.2-54.2); Mean Corpuscular HGB Conc 30.4 GM/DL (32-36); Mean Corpuscular Volume 81.3 FL (87-102); Mean Platelet Volume 8.9 FL (9.6-12.0); Monocytes # 0.4 10*3/uL (0.11-0.8); Monocytes % 8.7 % (1.7-12.7); Neutrophils % 54.1 % (38.7-73.9); Platelet Count 267 T/CUMM (130-400); Red Blood Count 4.33 MC/CUMM (3.8-5.5); Red Cell Distribution Width 15.5 % (9.3-17.3); White Blood Count 4.8 T/CUMM (4-12)
[2022-10-14 05:37] LABS: Calcium 8.9 MG/DL (8.5-10.1); Osmolality,Calculated 287.5 MOS/KG (273-304); Potassium 4.2 MMOL/L (3.5-5.1); Risk Ratio 6.1; Thyroid Stimulating Hormone 14.4 uIU/ml (0.358-3.74); VLDL Cholesterol 186.6 MG/DL
[2022-10-14] MEDS ORDERED: LEVOTHYROXINE 100 MCG TABLET PO SCH (06:30)
[2022-10-14 08:35] LABS: % Iron Saturation 4.3 % (18-50)
[2022-10-14] MEDS: INSULIN ASPART PROTAMINE/ASPART 70/30 100 UNIT/ML SUBCUT SCH ×2 (08:39→16:14)
[2022-10-14] MEDS: INSULIN REGULAR 100 UNIT/ML SUBCUT SCH ×4 (08:39→21:25)
[2022-10-14 08:41] LABS: 25 Hydroxy Vitamin D Total 9.7 NG/ML (30-100); Folate 12.95 NG/ML (5.38-24.0)
[2022-10-14] MEDS ORDERED: ENOXAPARIN 40 MG/0.4 ML SYRINGE SUBCUT SCH (09:00)
[2022-10-14] MEDS ORDERED: FERRIC GLUCONATE COMPLEX 125 MG in SODIUM CHLORIDE 0.9% 100 ML IV ONE (09:57)
[2022-10-14] MEDS ORDERED: ALBUTEROL/IPRATROPIUM 3 ML NEB RESP TX PRN (10:17)
[2022-10-14] MEDS ORDERED: NITROGLYCERIN SL 0.4 MG TABLET SL PRN (10:17)
[2022-10-14] MEDS ORDERED: ALBUTEROL 2.5 MG/3 ML NEB RESP TX PRN (10:17)
[2022-10-14] MEDS ORDERED: NON-FORMULARY MEDICATION (Albuterol Sulfate [Proair Hfa] 90 MCG/PUFF HFA aerosol inhaler) INH PRN (10:17)
[2022-10-14] MEDS: GABAPENTIN 300 MG CAPSULE PO SCH (10:27)
[2022-10-14] MEDS: CHOLECALCIFEROL 5,000 UNIT TABLET PO SCH (10:27)
[2022-10-14] MEDS: ROSUVASTATIN 20 MG TABLET PO SCH (10:28)
[2022-10-14] MEDS: CYCLOBENZAPRINE 10 MG TABLET PO PRN (10:28)
[2022-10-14] MEDS: FENOFIBRATE 160 MG TABLET PO SCH (10:28)
[2022-10-14] MEDS: CLOPIDOGREL 75 MG TABLET PO SCH (10:28)
[2022-10-14] MEDS: DOCUSATE SODIUM 100 MG CAPSULE PO SCH ×2 (10:29→21:25)
[2022-10-14] MEDS: DILTIAZEM CD 180 MG CAPSULE PO SCH (10:29)
[2022-10-14] MEDS: PANTOPRAZOLE 40 MG TABLET PO SCH (10:29)
[2022-10-14] MEDS: FERROUS SULFATE 325 MG TABLET PO SCH (16:56)
[2022-10-14] MEDS: TAMSULOSIN 0.4 MG CAPSULE PO SCH (21:25)
[2022-10-14] MEDS: ASPIRIN EC 81 MG TABLET PO SCH (21:25)
[2022-10-15] MEDS: LEVOTHYROXINE 112 MCG TABLET PO SCH (05:40)
[2022-10-15] MEDS ORDERED: diphenhydrAMINE CAP 50 MG CAPSULE PO ONE (06:00)
[2022-10-15] MEDS ORDERED: DIAZEPAM 5 MG TABLET PO ONE (06:00)
[2022-10-15 06:39] LABS: Basophils # 0.1 10*3/uL (0.0-0.2); Basophils % 1.1 % (0.0-0.8); Eosinophils # 0.3 10*3/uL (0.0-0.87); Eosinophils % 6.1 % (0.00-10.9); Hematocrit 37.6 VOL% (42.0-52.0); Hemoglobin 11.3 GM/DL (14.0-18.0); Immature Granulocytes % 0.4 %; Immature Granulocytes Absolute 0.02 #; Lymphocytes # 1.2 10*3/uL (1.4-4.0); Lymphocytes % 24.3 % (21.2-54.2); Mean Corpuscular HGB Conc 30.1 GM/DL (32-36); Mean Corpuscular Volume 81.7 FL (87-102); Monocytes # 0.5 10*3/uL (0.11-0.8); Monocytes % 9.7 % (1.7-12.7); Neutrophils % 58.4 % (38.7-73.9); Platelet Count 285 T/CUMM (130-400); Red Cell Distribution Width 15.9 % (9.3-17.3); White Blood Count 4.7 T/CUMM (4-12)
[2022-10-15 07:09] LABS: Calcium 8.5 MG/DL (8.5-10.1); Osmolality,Calculated 290.5 MOS/KG (273-304); Potassium 4.5 MMOL/L (3.5-5.1)
[2022-10-15] MEDS ORDERED: GABAPENTIN 300 MG CAPSULE PO SCH (09:00)
[2022-10-15] MEDS: INSULIN REGULAR 100 UNIT/ML SUBCUT SCH ×4 (09:16→21:54)
[2022-10-15] MEDS: INSULIN ASPART PROTAMINE/ASPART 70/30 100 UNIT/ML SUBCUT SCH ×2 (09:17→16:51)
[2022-10-15] MEDS: CLOPIDOGREL 75 MG TABLET PO SCH (09:18)
[2022-10-15] MEDS: CHOLECALCIFEROL 5,000 UNIT TABLET PO SCH (09:19)
[2022-10-15] MEDS: ROSUVASTATIN 20 MG TABLET PO SCH (09:19)
[2022-10-15] MEDS: GABAPENTIN 300 MG CAPSULE PO SCH (09:19)
[2022-10-15] MEDS: CYCLOBENZAPRINE 10 MG TABLET PO PRN (09:19)
[2022-10-15] MEDS: FENOFIBRATE 160 MG TABLET PO SCH (09:19)
[2022-10-15] MEDS: ISOSORBIDE MONONITRATE 30 MG TABLET PO SCH (09:20)
[2022-10-15] MEDS: FERROUS SULFATE 325 MG TABLET PO SCH ×2 (09:20→16:52)
[2022-10-15] MEDS: DILTIAZEM CD 180 MG CAPSULE PO SCH (09:21)
[2022-10-15] MEDS: DOCUSATE SODIUM 100 MG CAPSULE PO SCH ×2 (09:22→21:53)
[2022-10-15] MEDS: SERTRALINE 50 MG TABLET PO SCH (09:22)
[2022-10-15] MEDS: PANTOPRAZOLE 40 MG TABLET PO SCH (09:22)
[2022-10-15] MEDS: SODIUM CHLORIDE 0.9% 1,000 ML IV SCH ×2 (09:26→23:29)
[2022-10-15] MEDS ORDERED: HEPARIN/NACL 0.9% 2 UNITS/ML 2,000 UNIT/1,000 ML BAG IV ONE (12:14)
[2022-10-15] MEDS ORDERED: MIDAZOLAM 2 MG/2 ML VIAL ONE (14:16)
[2022-10-15] MEDS ORDERED: fentaNYL 100 MCG/2 ML VIAL ONE (14:16)
[2022-10-15] MEDS ORDERED: ACETAMINOPHEN/CODEINE 300-30 MG TABLET PO PRN (15:06)
[2022-10-15] MEDS: TAMSULOSIN 0.4 MG CAPSULE PO SCH (21:53)
[2022-10-15] MEDS: ASPIRIN EC 81 MG TABLET PO SCH (21:53)
[2022-10-15] MEDS: traMADol 50 MG TABLET PO PRN (23:34)
[2022-10-16 06:02] LABS: Basophils # 0.1 10*3/uL (0.0-0.2); Basophils % 0.9 % (0.0-0.8); Eosinophils # 0.2 10*3/uL (0.0-0.87); Eosinophils % 4.4 % (0.00-10.9); Immature Granulocytes % 0.5 %; Immature Granulocytes Absolute 0.03 #; Lymphocytes # 1.3 10*3/uL (1.4-4.0); Lymphocytes % 23.8 % (21.2-54.2); Mean Corpuscular HGB Conc 29.7 GM/DL (32-36); Mean Corpuscular Volume 81.1 FL (87-102); Mean Platelet Volume 8.7 FL (9.6-12.0); Monocytes # 0.5 10*3/uL (0.11-0.8); Monocytes % 8.9 % (1.7-12.7); Neutrophils % 61.5 % (38.7-73.9); Platelet Count 259 T/CUMM (130-400); Red Blood Count 4.44 MC/CUMM (3.8-5.5); Red Cell Distribution Width 15.9 % (9.3-17.3); White Blood Count 5.5 T/CUMM (4-12)
[2022-10-16 06:04] LABS: Hemoglobin 10.7 GM/DL (14.0-18.0)
[2022-10-16 06:07] LABS: Calcium 8.8 MG/DL (8.5-10.1); Osmolality,Calculated 283.8 MOS/KG (273-304); Potassium 4.1 MMOL/L (3.5-5.1)
[2022-10-16] MEDS: LEVOTHYROXINE 112 MCG TABLET PO SCH (06:34)
[2022-10-16 07:51] VITALS: BP 120/58
[2022-10-16] MEDS: INSULIN REGULAR 100 UNIT/ML SUBCUT SCH (09:36)
[2022-10-16] MEDS: CHOLECALCIFEROL 5,000 UNIT TABLET PO SCH (09:38)
[2022-10-16] MEDS: FENOFIBRATE 160 MG TABLET PO SCH (09:38)
[2022-10-16] MEDS: GABAPENTIN 300 MG CAPSULE PO SCH (09:38)
[2022-10-16] MEDS: CYCLOBENZAPRINE 10 MG TABLET PO PRN (09:38)
[2022-10-16] MEDS: ISOSORBIDE MONONITRATE 30 MG TABLET PO SCH (09:39)
[2022-10-16] MEDS: FERROUS SULFATE 325 MG TABLET PO SCH (09:39)
[2022-10-16] MEDS: CLOPIDOGREL 75 MG TABLET PO SCH (09:39)
[2022-10-16] MEDS: DILTIAZEM CD 180 MG CAPSULE PO SCH (09:39)
[2022-10-16] MEDS: INSULIN ASPART PROTAMINE/ASPART 70/30 100 UNIT/ML SUBCUT SCH (09:39)
[2022-10-16] MEDS: ROSUVASTATIN 20 MG TABLET PO SCH (09:39)
[2022-10-16] MEDS: SERTRALINE 50 MG TABLET PO SCH (09:40)
[2022-10-16] MEDS: DOCUSATE SODIUM 100 MG CAPSULE PO SCH (09:40)
[2022-10-16] MEDS: PANTOPRAZOLE 40 MG TABLET PO SCH (09:40)
[2022-10-16] MEDS: traMADol 50 MG TABLET PO PRN (09:41)
[2022-10-16] MEDS ORDERED: OMEGA 3 ACID ETHYL ESTERS 1 GM CAPSULE PO SCH (21:00)
== END 2022-10-16 12:19 | disposition home or self-care (01) ==
LOC: N.ED 21:27 → N.EDINP 21:27 → SUATTDRO 23:07 → N.EDINP 10-14 01:52 → N.2W 10-14 02:46
PROVIDERS: ADMIT Internal Medicine; ATTEND Internal Medicine
PROC: CLCCHCL (ICD-10-PCS; 2022-10-15 13:15)